=== PATIENT | female | born 1985 | race Caucasian/White ===

== ENCOUNTER 2025-09-25 08:45 | Day surgery (SDC) | payer BC, OTHER ==
[~2025-09-25] VITALS: Ht 162.6 cm; Wt 76.8 kg
[2025-09-25] MEDS: ringers solution, lacted 1,000 ML IV SCH (05:30)
[~2025-09-25 08:45] MED LIST: ESCI5TAB17 PO; PANT40TA54 PO
[2025-09-25 09:02] VITALS: BP 102/69; PULSE 63; RESP 16; TEMP 98.3; O2SAT 99
[2025-09-25] MEDS ORDERED: midazolam 1 mg/ML 2ml injection ONE (12:58)
[2025-09-25] MEDS ORDERED: fentaNYL/PF 50MCG/1 ML 2ML syringe ONE (12:58)
[2025-09-25] MEDS ORDERED: LIDOcaine 2% (20mg/ml) 5ml vial ONE (13:02)
[2025-09-25 13:10] VITALS: BP 108/62; PULSE 72; RESP 16; O2SAT 99
[2025-09-25 13:20] VITALS: BP 101/67; PULSE 58; RESP 13; O2SAT 97
[2025-09-25 13:30] VITALS: BP 104/73; PULSE 59; RESP 12; O2SAT 98
[2025-09-25 13:40] VITALS: BP 114/72; PULSE 65; RESP 15; O2SAT 98
[2025-09-25 13:50] VITALS: BP 114/72; PULSE 65; RESP 15; O2SAT 98
--- NOTE | 2025-09-26 14:32 | PATHOLOGY REPORT ---
[facility] [address] [place] [address] SURGICAL PATHOLOGY REPORT CaseNumber: [id number] Surgeon:Colby Jaquez M.D. CLINICAL INFORMATION CLINICAL INFORMATION: Epigastric pain. DIAGNOSIS DIAGNOSIS: GASTRIC ANTRUM, BIOPSY - NO SIGNIFICANT INFLAMMATION, EDEMA, OR VASCULAR CONGESTION - NO INTESTINAL METAPLASIA BY PAS STAINING - NO DYSPLASIA OR MALIGNANCY - NO H. PYLORI ORGANISMS ARE HIGHLIGHTED BY IMMUNOHISTOCHEMISTRY MICROSCOPIC DESCRIPTION MICROSCOPIC DESCRIPTION: Reviewed is a single H&E-stained slide showing serial sections and levels of a single fragment of gastric antral-type mucosa. There is no significant inflammation, edema, or vascular congestion. There is no intestinal metaplasia by PAS staining. There are no dysplastic or neoplastic features. Also, no H. pylori organisms are highlighted by immunohistochemistry. GROSS DESCRIPTION GROSS DESCRIPTION: Received in a container of formalin labeled with the patient's name, number, and "antrum BX" is a 0.4 x 0.2 x 0.1 cm piece of carter tissue. The specimen is entirely submitted as A1. The time at which the specimen was removed was 1304. The time at which the specimen was placed in formalin was 1304. Electronically signed by: Jerry Jose M.D. 09/26/2025 1:57:00 PM
== END 2025-09-25 13:50 | disposition home or self-care (01) ==
LOC: GI LAB 08:45
PROVIDERS: ATTEND Internal Medicine Gastroenterology
DX: R12 Heartburn (principal); K31.89 Other diseases of stomach and duodenum; K21.9 Gastro-esophageal reflux disease without esophagitis; F41.1 Generalized anxiety disorder; Z90.49 Acquired absence of other specified parts of digestive tract; Z87.891 Personal history of nicotine dependence; Z79.3 Long term (current) use of hormonal contraceptives; Z80.3 Family history of malignant neoplasm of breast
CPT/HCPCS: 43239; J2003; J2250; J3010; J7120; Z7512; A4615